=== PATIENT | female | born 1995 ===

== ENCOUNTER 2024-05-23 20:14 | Inpatient (IN) ==
[2024-05-24] MEDS ORDERED: LIDOCAINE 1% LOCAL 20 ML VIAL INFIL PRN (00:39)
[2024-05-24] MEDS ORDERED: OXYTOCIN 30 UNITS/NSS 30 UNITS/500 ML BAG IV PRN (00:39)
--- NOTE | 2024-05-24 01:17 | Obstetrical Progress Note ---
Date of Service May 24, 2024 Assessment & Plan (1) , post-term: Plan: Pt is 28 yo at 40+ gestation Presents in labor FHR; CA1 Ctx 2-6mins VE: 3/50/-3 Vt on presentation plan Admit and anticipate delivery Admission and Anticipated Discharge Date Admission Date: May 24, 2024 Results & Data Vital Signs (Past 12 Hours) Vital Signs Temp Pulse Resp BP 05/23/24 22:34 83 134/81 05/23/24 20:46 85 135/88 05/23/24 20:40 37.5 C 85 18 135/88
[2024-05-24 01:24] LABS: Hematocrit (blood only) 38.3 % (37.0-47.0); Hemoglobin 13.2 g/dl (12.0-16.0); Mean Corpuscular Hemoglobin 30.9 pg (25.0-34.0); Mean Corpuscular Hgb Conc 34.5 g/dL (32.0-36.0); Mean Corpuscular Volume 89.7 fL (80.0-100.0); Mean Platelet Volume 12.9 fL (9.4-12.4); Platelet Count 175 K/uL (130-400); RDW Coefficient of Variation 13.2 % (11.5-14.5); RDW Standard Deviation 43.1 fL (36.4-46.3); Red Blood Count 4.27 M/uL (4.20-5.40); White Blood Count 14.23 K/ul (4.8-10.8)
[2024-05-24] MEDS ORDERED: PROMETHAZINE 6.25 MG/50.25 ML BAG IV PRN ×2 (04:35→18:10)
[2024-05-24] MEDS ORDERED: SODIUM CHLORIDE 0.9% PF INJ 10 ML VIAL EPI PRN (04:35)
[2024-05-24] MEDS ORDERED: NALOXONE HCL 1 MG in SODIUM CHLORIDE 0.9% 1,000 ML IV PRN ×2 (04:35→18:10)
[2024-05-24] MEDS ORDERED: NALBUPHINE HCL INJ 10 MG/ML AMP IV PRN ×2 (04:35→18:10)
[2024-05-24] MEDS ORDERED: BUPIVACAINE 0.25% PF 30 ML VIAL EPI PRN (04:35)
[2024-05-24] MEDS ORDERED: LIDOCAINE 2% MPF LOCAL 5 ML VIAL EPI PRN (04:35)
[2024-05-24] MEDS ORDERED: NALOXONE HCL 0.4 MG/1 ML VIAL/CARP IV PRN ×2 (04:35→18:10)
[2024-05-24] MEDS ORDERED: diphenhydrAMINE 50 MG/ML VIAL IV PRN ×2 (04:35→18:10)
[2024-05-24] MEDS ORDERED: ROPIVACAINE 0.5% PF 5 MG/ML 20 ML VIAL EPI PRN (04:35)
[2024-05-24] MEDS ORDERED: fentaNYL citrate PF 100 MCG/2 ML VIAL EPI PRN (04:35)
[2024-05-24] MEDS ORDERED: ePHEDrine sulfate 50 MG/ML AMP IV PRN ×2 (04:35→18:10)
--- NOTE | 2024-05-24 04:37 | Anesthesiology Consultation ---
Date of Service May 24, 2024 Assessment & Plan Chart Review Chart Review: Patient NOT seen in Pre Admission Testing and Acceptable Risk for Labor Epidural Consults Requested none ASA ASA2 Proposed Anesthesia Anesthesia Type: Labor Epidural Risk / Benefits Reviewed With: PT / POA / Parent / Guardian, Accepts Plan and Informed Consent Obtained History Height/Weight Height: 5 ft 4 in Weight: 92.533 kg Allergies Allergy/AdvReac Type Severity Reaction Status Date / Time No Known Allergies Allergy Unverified 05/23/24 20:34 Past Medical History Medical History (Updated 05/24/24 @ 01:14 by Fernando Spence MD) History of spontaneous (08/2022) Exercise / Class Metabolic Activity II 4-5 Yardwork/Stairs/Walk up hill Past Family History Family History (Updated 05/23/24 @ 20:34 by Sadie Avalos RN) Grandmother (Maternal) Stroke Hypertension Mother Hypertension Past Surgical History Surgical History (Updated 05/23/24 @ 20:31 by Sadie Avalos RN) History of wisdom tooth extraction (2014) History of dilatation and curettage (08/2022) Past Anesthesia History No Hx of Anesthesia Complications and No Family Hx of Anesthesia Complications History of PONV No Hx of PONV and No Hx of Motion Sickness Social History Smoking Status: Never smoker Hx Alcohol Use: No Hx Substance Use: No substance use type: does not use Physical Exam Vital Signs Last Vital Signs Temp 37.5 C 05/23/24 20:40 Pulse 83 05/23/24 22:34 Resp 18 05/23/24 20:40 BP 134/81 05/23/24 22:34 ENMT Mouth: no dentition abnormality Thyromental Distance: > or= 3.5 Finger Breadths Mallampati Class: II Neck normal visual inspection Respiratory normal respiratory effort Auscultation: lungs clear to auscultation bilaterally Cardiovascular Rate/Rhythm: regular rate and regular rhythm Psychiatric Orientation: alert Testing Laboratory Results 05/24/24 00:52
[2024-05-24] MEDS: fentANYL 2 MCG/ML BUPIVacaine 0.125%-NSS 100ML BAG ONE (04:50)
[2024-05-24] MEDS: LIDOCAINE 2%/EPINEPHRINE 1:200,000 20 ML PF ONE (04:53)
[2024-05-24] MEDS: fentaNYL citrate PF 100 MCG/2 ML VIAL ONE (04:53)
[2024-05-24] MEDS: BUPIVACAINE 0.25% PF 30 ML VIAL ONE (04:53)
[2024-05-24] MEDS: SODIUM CHLORIDE 0.9% PF INJ 10 ML VIAL ONE (04:53)
[2024-05-24] MEDS: LIDOCAINE 2%/EPINEPHRINE 1:200,000 20 ML PF EPI STA (04:56)
[2024-05-24] MEDS: BUPIVACAINE 0.25% PF 30 ML VIAL EPI STA (04:56)
[2024-05-24] MEDS: fentaNYL citrate PF 100 MCG/2 ML VIAL EPI STA (04:56)
[2024-05-24] MEDS: SODIUM CHLORIDE 0.9% PF INJ 10 ML VIAL EPI STA (04:56)
--- NOTE | 2024-05-24 05:36 | Obstetrical Progress Note ---
Date of Service May 24, 2024 Assessment & Plan (1) , post-term: Plan: Pt doing well FHR; CAT1 Ctx 2-4mins Epidural placed AROM with amniohook- clear fluid Pitocin orders placed: To be started if ctx space out EFW; 7-8lbs Admission and Anticipated Discharge Date Admission Date: May 24, 2024 Results & Data Vital Signs (Past 12 Hours) Vital Signs Temp Pulse Resp BP Pulse Ox 05/24/24 05:29 104 H 98 05/24/24 05:24 114 H 100 05/24/24 05:19 86 98 05/24/24 05:18 84 129/61 05/24/24 05:16 100 H 113/56 L 05/24/24 05:14 89 05/24/24 05:14 87 126/60 97 05/24/24 05:12 97 H 116/57 L 05/24/24 05:10 90 128/62 05/24/24 05:09 86 97 05/24/24 05:08 107 H 117/60 05/24/24 05:06 100 H 118/63 05/24/24 05:04 105 H 125/68 98 05/24/24 05:02 111 H 113/55 L 05/24/24 05:00 116 H 118/64 05/24/24 04:59 96 H 98 05/24/24 04:58 99 H 111/56 L 05/24/24 04:56 94 H 119/57 L 05/24/24 04:54 100 H 119/61 98 05/24/24 04:52 100 H 128/70 05/24/24 04:50 96 H 132/76 05/24/24 04:49 107 H 100 05/24/24 04:48 104 H 137/84 05/24/24 04:46 90 144/95 H 05/24/24 04:44 95 H 99 05/24/24 04:42 93 H 143/91 H 05/23/24 22:34 83 134/81 05/23/24 20:46 85 135/88 05/23/24 20:40 37.5 C 85 18 135/88
[2024-05-24] MEDS: OXYTOCIN 30 UNITS/NSS 30 UNITS/500 ML BAG IV PRN (06:30)
[2024-05-24] MEDS: LACTATED RINGER'S 1,000 ML IV SCH ×2 (07:00→15:45)
--- NOTE | 2024-05-24 08:09 | Obstetrical Progress Note ---
Date of Service May 24, 2024 Assessment & Plan (1) , post-term: Plan: Pt doing well AROM FHR; CAT1 Ctx 2-5min PIT; 4mu VE; 7/100/-2 continue with augmentation Admission and Anticipated Discharge Date Admission Date: May 24, 2024 Results & Data Vital Signs (Past 12 Hours) Vital Signs Temp Pulse Resp BP Pulse Ox 05/24/24 08:05 120 H 124/68 05/24/24 08:04 94 H 100 05/24/24 07:59 96 H 100 05/24/24 07:54 84 99 05/24/24 07:50 90 112/71 05/24/24 07:49 86 99 05/24/24 07:44 101 H 99 05/24/24 07:39 89 98 05/24/24 07:34 91 H 113/72 99 05/24/24 07:30 36.8 C 20 05/24/24 07:29 96 H 99 05/24/24 07:24 94 H 100 05/24/24 07:19 95 H 113/72 99 05/24/24 07:14 97 H 99 05/24/24 07:09 97 H 100 05/24/24 07:04 103 H 107/56 L 100 05/24/24 06:59 83 99 05/24/24 06:54 107 H 100 05/24/24 06:50 83 103/58 L 05/24/24 06:49 86 99 05/24/24 06:44 89 99 05/24/24 06:39 96 H 98 05/24/24 06:34 94 H 107/59 L 99 05/24/24 06:30 16 05/24/24 06:30 16 05/24/24 06:29 89 98 05/24/24 06:24 85 98 05/24/24 06:20 88 101/59 L 05/24/24 06:19 89 99 05/24/24 06:14 94 H 99 05/24/24 06:09 96 H 99 05/24/24 06:04 93 H 107/61 99 05/24/24 05:59 97 H 97 05/24/24 05:54 89 97 05/24/24 05:50 88 105/63 05/24/24 05:49 86 98 05/24/24 05:44 91 H 97 05/24/24 05:39 92 H 98 05/24/24 05:34 102 H 97/55 L 98 05/24/24 05:30 16 05/24/24 05:30 16 05/24/24 05:30 16 05/24/24 05:30 16 05/24/24 05:29 104 H 98 05/24/24 05:24 114 H 100 05/24/24 05:19 86 98 05/24/24 05:18 84 129/61 05/24/24 05:16 100 H 113/56 L 05/24/24 05:14 89 05/24/24 05:14 87 126/60 97 05/24/24 05:12 97 H 116/57 L 05/24/24 05:10 90 128/62 05/24/24 05:09 86 97 05/24/24 05:08 107 H 117/60 05/24/24 05:06 100 H 118/63 05/24/24 05:04 105 H 125/68 98 05/24/24 05:02 111 H 113/55 L 05/24/24 05:00 116 H 118/64 05/24/24 04:59 96 H 98 05/24/24 04:58 99 H 111/56 L 05/24/24 04:56 94 H 119/57 L 05/24/24 04:54 100 H 119/61 98 05/24/24 04:52 100 H 128/70 05/24/24 04:50 96 H 132/76 05/24/24 04:49 107 H 100 05/24/24 04:48 104 H 137/84 05/24/24 04:46 90 144/95 H 05/24/24 04:44 95 H 99 05/24/24 04:42 93 H 143/91 H 05/24/24 04:00 36.5 C 05/23/24 22:34 83 134/81 05/23/24 20:46 85 135/88 05/23/24 20:40 37.5 C 85 18 135/88
[2024-05-24] MEDS ORDERED: CALCIUM CARBONATE 500 MG CHEWABLE TAB PO PRN ×2 (08:39→17:19)
[2024-05-24] MEDS: ONDANSETRON INJ 2 MG/ML 2 ML VIAL IV PRN (09:27)
[2024-05-24] MEDS: fentANYL 2 MCG/ML BUPIVacaine 0.125%-NSS 100ML BAG EPI PRN (13:32)
[2024-05-24] MEDS ORDERED: LIDOCAINE 2%/EPINEPHRINE 1:200,000 20 ML PF ONE (15:41)
[2024-05-24] MEDS ORDERED: MoRPHine SULFATE PF 1 MG/ML 10 ML AMP/VIAL ONE (15:43)
--- NOTE | 2024-05-24 15:51 | History & Physical Report ---
Date of Service May 24, 2024 Assessment & Plan Admission and Anticipated Discharge Date Admission Date: May 24, 2024 History of Present Illness Chief Complaint: Intrauterine 40 weeks 2 days gestation. Arrest of labor. Primary Care Provider: Unknown Unknown Patient is a 28-year-old 2 para 0. She has had 1 spontaneous AB. Her general health is good. is well dated with a first trimester ultrasound. Due date is 05/22/2024. Patient had no problems. Patient was admitted in labor on 05/22/2024 to 3 to 4 cm dilated. Eventually she had epidural for pain control. She had artificial rupture of membranes. And she was started on IV Pitocin. She received max doses of IV Pitocin having good strong contractions every 2 minutes. Despite having a good labor pattern with frequent strong contractions she had arrest of labor after 3+ hours in the active phase the head could not come down into the mid pelvis. At the time of the there was a lot of molding. And the sutures were not palpable through vaginal exam. Station was -2. Allergies Allergy/AdvReac Type Severity Reaction Status Date / Time No Known Allergies Allergy Unverified 05/23/24 20:34 Home Medications Medication Instructions Recorded Confirmed Type famotidine 20 mg tablet (Pepcid) 10 mg PO DAILY 05/24/24 05/24/24 History Past Med/Surg History Problem List , post-term Medical History History of spontaneous (08/2022) Surgical History History of wisdom tooth extraction (2014) History of dilatation and curettage (08/2022) Family History (Updated 05/23/24 @ 20:34 by Sadie Avalos RN) Grandmother (Maternal) Stroke Hypertension Mother Hypertension Social History (Updated 05/23/24 @ 20:33 by Sadie Avalos RN) Smoking Status: Never smoker Hx Alcohol Use: No Hx Substance Use: No Preferred Language: Swiss Communication Ability: Effective Visual Impairment: No Limitations [employer] Required: No Beliefs That Will Affect Care: None marital status: marital status details: Luis F (32) [phone] Current Living Situation: Spouse current occupational status: unemployed Other Information That Helps Us Care for You: No Feels Safe at Home: Yes Safety Concerns: Feels Safe At This Time Diet: regular Assistive Devices: None Physical Exam Physical Exam: Patient was well-developed well-nourished 28-year-old white female. Alert oriented x 3 cooperative. And intermittent periods of distress due to labor. Heart had a regular rhythm S1 and S2 are normal. Lungs were clear to auscultation and percussion. Trachea was midline. There was no cervical ad enopathy. Abdomen revealed a gravid abdomen consistent with an intrauterine of 7 to 8 pounds. Pelvic exam revealed a vertex presentation. There was a large amount of molding. Cervix was fully dilated. Station was a -2. So the sutures were not palpable. There was no calf tenderness. No CVA tenderness. Results & Data Results & Data Vital Signs (Past 12 Hours) Vital Signs Temp Pulse Resp BP Pulse Ox 05/24/24 15:44 108 H 100 05/24/24 15:42 119 H 93 05/24/24 15:39 97 H 99 05/24/24 15:34 105 H 97 05/24/24 15:29 122 H 99 05/24/24 15:24 120 H 98 05/24/24 15:19 105 H 93 05/24/24 15:14 113 H 97 05/24/24 15:12 118 H 94 05/24/24 15:09 100 H 96 05/24/24 15:04 118 H 137/78 98 05/24/24 14:59 116 H 99 05/24/24 14:54 92 H 96 05/24/24 14:53 91 H 141/87 H 05/24/24 14:49 127 H 98 05/24/24 14:45 20 05/24/24 14:45 20 05/24/24 14:44 108 H 98 05/24/24 14:39 92 H 96 05/24/24 14:35 98 H 92 05/24/24 14:34 130 H 99 05/24/24 14:29 93 05/24/24 14:29 102 H 05/24/24 14:29 127 H 99 05/24/24 14:24 100 H 97 05/24/24 14:19 117 H 97 05/24/24 14:15 99 H 22 146/97 H 05/24/24 14:14 118 H 98 05/24/24 14:10 103 H 137/98 05/24/24 14:09 133 H 97 05/24/24 14:08 118 H 131/101 H 05/24/24 14:07 128 H 94 05/24/24 14:04 109 H 136/89 98 05/24/24 14:00 22 05/24/24 14:00 22 05/24/24 13:59 115 H 99 05/24/24 13:54 105 H 97 05/24/24 13:50 101 H 140/95 05/24/24 13:49 106 H 98 05/24/24 13:45 22 05/24/24 13:45 22 05/24/24 13:44 100 H 98 05/24/24 13:39 111 H 98 05/24/24 13:34 99 H 96 05/24/24 13:29 107 H 98 05/24/24 13:24 113 H 97 05/24/24 13:19 99 H 05/24/24 13:19 106 H 120/65 96 05/24/24 13:14 114 H 98 05/24/24 13:09 118 H 98 05/24/24 13:06 110 H 149/74 H 05/24/24 13:04 110 H 05/24/24 13:04 147 H 155/78 H 97 05/24/24 13:00 22 05/24/24 13:00 36.8 C 22 05/24/24 12:59 149 H 98 05/24/24 12:54 124 H 98 05/24/24 12:51 115 H 138/79 05/24/24 12:49 123 H 98 05/24/24 12:45 22 05/24/24 12:45 22 05/24/24 12:44 147 H 98 05/24/24 12:39 142 H 98 05/24/24 12:34 109 H 139/80 100 05/24/24 12:30 20 05/24/24 12:30 20 05/24/24 12:29 98 H 98 05/24/24 12:24 95 H 100 05/24/24 12:20 100 H 141/78 H 05/24/24 12:19 95 H 100 05/24/24 12:14 114 H 99 05/24/24 12:09 96 H 98 05/24/24 12:04 95 H 130/65 99 05/24/24 12:00 20 05/24/24 12:00 20 05/24/24 11:59 94 H 98 05/24/24 11:54 89 97 05/24/24 11:50 95 H 138/65 05/24/24 11:49 111 H 99 05/24/24 11:44 100 H 99 05/24/24 11:39 92 H 05/24/24 11:39 104 H 148/85 H 100 05/24/24 11:35 37.1 C 05/24/24 11:34 115 H 100 05/24/24 11:30 18 05/24/24 11:30 18 05/24/24 11:29 104 H 99 05/24/24 11:24 98 H 98 05/24/24 11:20 100 H 144/88 H 05/24/24 11:19 101 H 99 05/24/24 11:14 94 H 99 05/24/24 11:09 90 99 05/24/24 11:05 91 H 134/87 05/24/24 11:04 101 H 99 05/24/24 11:00 18 05/24/24 11:00 18 05/24/24 10:59 106 H 99 05/24/24 10:54 97 H 98 05/24/24 10:50 103 H 141/90 H 05/24/24 10:49 106 H 99 05/24/24 10:44 101 H 98 05/24/24 10:39 112 H 99 05/24/24 10:34 99 05/24/24 10:34 105 H 05/24/24 10:34 102 H 113/65 05/24/24 10:29 104 H 97 05/24/24 10:24 81 97 05/24/24 10:19 88 05/24/24 10:19 83 110/64 97 05/24/24 10:14 84 97 05/24/24 10:09 88 96 05/24/24 10:05 87 110/63 05/24/24 10:04 86 98 05/24/24 10:00 18 05/24/24 10:00 18 05/24/24 09:59 85 97 05/24/24 09:54 84 97 05/24/24 09:49 98 H 114/63 98 05/24/24 09:44 82 97 05/24/24 09:39 97 H 96 05/24/24 09:34 92 H 119/60 98 05/24/24 09:30 18 05/24/24 09:30 36.8 C 18 05/24/24 09:29 99 H 99 05/24/24 09:24 111 H 99 05/24/24 09:20 90 130/79 05/24/24 09:19 96 H 98 05/24/24 09:14 104 H 98 05/24/24 09:09 118 H 98 05/24/24 09:05 95 H 133/84 05/24/24 09:04 94 H 99 05/24/24 08:59 101 H 99 05/24/24 08:54 96 H 99 05/24/24 08:49 101 H 130/89 98 05/24/24 08:44 111 H 99 05/24/24 08:39 112 H 98 05/24/24 08:34 134 H 100 05/24/24 08:30 18 05/24/24 08:30 18 05/24/24 08:29 91 H 98 05/24/24 08:24 102 H 99 05/24/24 08:20 96 H 133/85 05/24/24 08:19 115 H 100 05/24/24 08:14 109 H 100 05/24/24 08:09 95 H 98 05/24/24 08:05 120 H 124/68 05/24/24 08:04 94 H 100 05/24/24 08:00 18 05/24/24 08:00 18 05/24/24 07:59 96 H 100 05/24/24 07:54 84 99 05/24/24 07:50 90 112/71 05/24/24 07:49 86 99 05/24/24 07:44 101 H 99 05/24/24 07:39 89 98 05/24/24 07:34 91 H 113/72 99 05/24/24 07:30 36.8 C 20 05/24/24 07:30 18 05/24/24 07:30 18 05/24/24 07:29 96 H 99 05/24/24 07:24 94 H 100 05/24/24 07:19 95 H 113/72 99 05/24/24 07:14 97 H 99 05/24/24 07:09 97 H 100 05/24/24 07:04 103 H 107/56 L 100 05/24/24 06:59 83 99 05/24/24 06:54 107 H 100 05/24/24 06:50 83 103/58 L 05/24/24 06:49 86 99 05/24/24 06:44 89 99 05/24/24 06:39 96 H 98 05/24/24 06:34 94 H 107/59 L 99 05/24/24 06:30 16 05/24/24 06:30 16 05/24/24 06:29 89 98 05/24/24 06:24 85 98 05/24/24 06:20 88 101/59 L 05/24/24 06:19 89 99 05/24/24 06:14 94 H 99 05/24/24 06:09 96 H 99 05/24/24 06:04 93 H 107/61 99 05/24/24 05:59 97 H 97 05/24/24 05:54 89 97 05/24/24 05:50 88 105/63 05/24/24 05:49 86 98 05/24/24 05:44 91 H 97 05/24/24 05:39 92 H 98 05/24/24 05:34 102 H 97/55 L 98 05/24/24 05:30 16 05/24/24 05:30 16 05/24/24 05:30 16 05/24/24 05:30 16 05/24/24 05:29 104 H 98 05/24/24 05:24 114 H 100 05/24/24 05:19 86 98 05/24/24 05:18 84 129/61 05/24/24 05:16 100 H 113/56 L 05/24/24 05:14 89 05/24/24 05:14 87 126/60 97 05/24/24 05:12 97 H 116/57 L 05/24/24 05:10 90 128/62 05/24/24 05:09 86 97 05/24/24 05:08 107 H 117/60 05/24/24 05:06 100 H 118/63 05/24/24 05:04 105 H 125/68 98 05/24/24 05:02 111 H 113/55 L 05/24/24 05:00 116 H 118/64 05/24/24 04:59 96 H 98 05/24/24 04:58 99 H 111/56 L 05/24/24 04:56 94 H 119/57 L 05/24/24 04:54 100 H 119/61 98 05/24/24 04:52 100 H 128/70 05/24/24 04:50 96 H 132/76 05/24/24 04:49 107 H 100 05/24/24 04:48 104 H 137/84 05/24/24 04:46 90 144/95 H 05/24/24 04:44 95 H 99 05/24/24 04:42 93 H 143/91 H 05/24/24 04:00 36.5 C Code Status & VTE Plan VTE Prophylaxis Plan VTE Prophylaxis will be ordered: Yes
[2024-05-24] MEDS: CITRIC ACID/SODIUM CITRATE 15 ML UDC PO SCH (15:56)
[2024-05-24] MEDS: ACETAMINOPHEN 500 MG TAB PO SCH (15:56)
[2024-05-24] MEDS: cefOXitin 2,000 MG in DEXTROSE 5 % MINI-B 50 ML IV SCH (16:03)
[2024-05-24] MEDS ORDERED: OXYTOCIN 10 UNITS/ML VIAL ONE (16:28)
[2024-05-24] MEDS: OXYTOCIN 10 UNITS/ML 10ML VIAL IM ONE (16:34)
[2024-05-24] MEDS ORDERED: LACTATED RINGER'S 1,000 ML IV SCH ×2 (16:45→17:30)
[2024-05-24] MEDS ORDERED: MAGNESIUM HYDROXIDE SUSP 30 ML UDC PO PRN (17:19)
[2024-05-24] MEDS ORDERED: BENZOCAINE 20% SPRY 85 APPLN/85 GM CAN EXT PRN (17:19)
[2024-05-24] MEDS ORDERED: SENNA 8.6 MG TAB PO PRN (17:19)
[2024-05-24] MEDS ORDERED: ONDANSETRON INJ 2 MG/ML 2 ML VIAL IV PRN ×2 (17:19→18:10)
[2024-05-24] MEDS ORDERED: HYDROCORTISONE ACETATE 25 MG SUPP PR PRN (17:19)
[2024-05-24] MEDS ORDERED: OXYTOCIN 30 UNITS/LR 1,003 ML IV SCH (17:30)
--- NOTE | 2024-05-24 17:30 | Operative Report ---
Post Operative Report Pre & Post Diagnosis Operation Date: 05/24/24 16:15 Pre-Op Diagnosis: Cephalopelvic Disproportion Post-Op Diagnosis: Cephalopelvic Disproportion I identified the patient and participated in the time-out.: Yes Procedure Operation Date: 05/24/24 16:15 Actual Procedures p Section in LD delivery of live male child at 1632(Bilateral) - Conor Velez MD Surgeon Conor Velez MD Marketing Development Manager Nurse to assist Estimated Blood Loss 680 Findings Consistent with Post-Op Diagnosis Direct occiput posterior position Specimens Placenta Anesthesia Type MAC Epidural Complications None Indications Arrest of labor secondary to cephalopelvic disproportion. Description of Procedure Patient was brought to the OR table correctly identified by armband and conversation. Epidural anesthesia was topped off. Compression stockings and a Hernandez catheter was inserted. Lower abdomen was painted with an alcohol-based sterilizing solution. This was allowed to dry for 3 minutes. Was then draped in usual sterile fashion. Timeout was called. Level of anesthesia was checked and found to be adequate. A Pfannenstiel incision was made and carried down to the anterior fascia by sharp dissection. Fascia was incised transversely exposing the recti muscles. Fascial layer was dissected off the recti muscles in the midline. Down to the pelvic brim. And up towards the umbilicus. Peritoneum was raised and entered in the midline. A retractor was inserted into the incision for exposure of the lower uterine segment. An incision was made above the vesicouterine fold. The bladder was advanced out of the incisional area. Incision and uterus was made by cutting first with a knife and then entering bluntly with the scissors. Clear amniotic fluid was seen at this time. The operators hand was started into the pelvic cavity. At this time it was noted that the was direct OP. I was able to get my hand around the caput. And then as I pulled upward the head rotated into OA position. And then with fundal pressure we pushed the out of the incision. breathing cried spontaneously was attended to by the oil dispatcher who is scrubbed and present at the time of delivery. Cord was allowed to pulse for 1 minute. Cord was then clamped and cut. was delivered to the oil dispatcher. Cord blood was taken. The placenta was removed manually. Uterus tubes and ovaries were brought out through the abdominal incision. A clean sponge was used to clean the uterine cavity. 10 units of Pitocin was injected into the myometrium. The lower segmental defect was exposed. Ring forceps were used to tag the angle. And a heavy-duty chromic was used to approximate the myometrial layer. Following this a Vicryl suture was used to approximate the fascial layer over this by placing the Vicryl in a horizontal suture. 3 [id number] sutures of Vicryl were used to create hemostasis and to better approximate the fascial layer. Following this a plain suture was used approximate the perineal skin edges. And restore the integrity of the vesicouterine fold. At this time the incision was inspected and found to be hemostatic. Pelvis was cleansed of all blood clots and debris. The uterus tubes and ovaries were reinserted into the abdominal cavity. A careful anatomical approximation of the anterior abdominal wall was performed. The peritoneum was closed with a continuous interlocking suture of chromic. Recti muscles were approximated with interrupted [id number] suture of chromic. Fascial layer was closed with a continuous interlocking suture of Vicryl and tied in the midline. Subcu was approximated with a running plain. The skin edges were approximated with staple clips. Patient tolerated procedure well. I attest to the content of the Intraoperative Record and any orders documented therein. Any exceptions are noted below.
[2024-05-24] MEDS: ePHEDrine sulfate 50 MG/ML AMP ONE (17:39)
[2024-05-24] MEDS: OXYTOCIN 20 UNITS/LR 1,002 ML IV SCH (18:00)
[2024-05-24] MEDS: DIPHTHER/TETAN/PERTUS Vaccine (Tdap, Adol/Adult) 0.5mL IM ONE (18:03)
[2024-05-24] MEDS: KETOROLAC 30 MG/ML VIAL ONE (18:06)
[2024-05-24] MEDS ORDERED: HYDROmorphone INJ 0.5 MG/0.5 ML SYR IV PRN (18:10)
[2024-05-24] MEDS ORDERED: METOCLOPRAMIDE HCL 10 MG in SODIUM CHLORIDE 0.9% 50 ML IV PRN (18:10)
[2024-05-24] MEDS ORDERED: MEPERIDINE HCL 25 MG/ML CARP/VIAL IV PRN (18:10)
[2024-05-24] MEDS ORDERED: oxyCODONE HCL IR 5 MG TAB (IMMEDIATE RELEASE) PO PRN (18:10)
[2024-05-24] MEDS ORDERED: MoRPHine SULFATE 2 MG/ML CARP IV PRN (18:10)
[2024-05-24] MEDS ORDERED: ACETAMINOPHEN 1,000 MG/100 ML VIAL IV PRN (18:12)
[2024-05-24] MEDS ORDERED: KETOROLAC 30 MG/ML VIAL IV PRN (18:12)
[2024-05-24] MEDS: KETOROLAC 30 MG/ML VIAL IV SCH (18:14)
[2024-05-24] MEDS ORDERED: DC INTRASPINAL MORPHINE SCH (18:15)
[2024-05-24] MEDS ORDERED: NO NARCOTICS OR SEDATIVES SCH (18:15)
--- NOTE | 2024-05-24 18:38 | Anesthesiology Progress Note ---
Date of Service May 24, 2024 Anesthesia Post Procedure Vital Signs Vital Signs: Temp Pulse Resp BP Pulse Ox 05/24/24 18:34 92 H 140/78 95 05/24/24 18:29 93 H 98 05/24/24 18:24 97 05/24/24 18:24 92 H 05/24/24 18:24 90 134/82 05/24/24 18:19 92 H 98 05/24/24 18:14 91 H 136/84 97 05/24/24 18:09 92 H 98 05/24/24 18:04 91 H 134/80 99 05/24/24 17:59 94 H 99 05/24/24 17:54 99 H 129/82 99 05/24/24 17:49 96 H 100 05/24/24 17:45 79 135/81 05/24/24 17:44 80 98 05/24/24 17:39 79 99 05/24/24 17:34 18 05/24/24 17:34 89 124/70 100 05/24/24 17:29 90 100 05/24/24 17:24 36.7 C 20 05/24/24 17:24 84 126/76 100 05/24/24 16:05 18 05/24/24 16:05 18 05/24/24 16:04 99 H 100 05/24/24 16:03 115 H 143/84 H 05/24/24 16:00 108 H 138/86 05/24/24 15:59 108 H 100 05/24/24 15:58 108 H 139/87 05/24/24 15:54 111 H 100 05/24/24 15:51 98 H 131/94 05/24/24 15:49 106 H 99 05/24/24 15:48 99 H 140/97 05/24/24 15:44 108 H 100 05/24/24 15:42 119 H 93 05/24/24 15:39 97 H 99 05/24/24 15:34 105 H 97 05/24/24 15:30 18 05/24/24 15:30 18 05/24/24 15:29 122 H 99 05/24/24 15:24 120 H 98 05/24/24 15:19 105 H 93 05/24/24 15:15 18 05/24/24 15:15 18 05/24/24 15:14 113 H 97 05/24/24 15:12 118 H 94 05/24/24 15:09 100 H 96 05/24/24 15:04 118 H 137/78 98 05/24/24 15:00 18 05/24/24 15:00 18 05/24/24 14:59 116 H 99 05/24/24 14:54 92 H 96 05/24/24 14:53 91 H 141/87 H 05/24/24 14:49 127 H 98 05/24/24 14:45 20 05/24/24 14:45 20 05/24/24 14:44 108 H 98 05/24/24 14:39 92 H 96 05/24/24 14:35 98 H 92 05/24/24 14:34 130 H 99 05/24/24 14:29 93 05/24/24 14:29 102 H 05/24/24 14:29 127 H 99 05/24/24 14:24 100 H 97 05/24/24 14:19 117 H 97 05/24/24 14:15 99 H 22 146/97 H 05/24/24 14:14 118 H 98 05/24/24 14:10 103 H 137/98 05/24/24 14:09 133 H 97 05/24/24 14:08 118 H 131/101 H 05/24/24 14:07 128 H 94 05/24/24 14:04 109 H 136/89 98 05/24/24 14:00 22 05/24/24 14:00 22 05/24/24 13:59 115 H 99 05/24/24 13:54 105 H 97 05/24/24 13:50 101 H 140/95 05/24/24 13:49 106 H 98 05/24/24 13:45 22 05/24/24 13:45 22 05/24/24 13:44 100 H 98 05/24/24 13:39 111 H 98 05/24/24 13:34 99 H 96 05/24/24 13:29 107 H 98 05/24/24 13:24 113 H 97 05/24/24 13:19 99 H 05/24/24 13:19 106 H 120/65 96 05/24/24 13:14 114 H 98 05/24/24 13:09 118 H 98 05/24/24 13:06 110 H 149/74 H 05/24/24 13:04 110 H 05/24/24 13:04 147 H 155/78 H 97 05/24/24 13:00 22 05/24/24 13:00 36.8 C 22 05/24/24 12:59 149 H 98 05/24/24 12:54 124 H 98 05/24/24 12:51 115 H 138/79 05/24/24 12:49 123 H 98 05/24/24 12:45 22 05/24/24 12:45 22 05/24/24 12:44 147 H 98 05/24/24 12:39 142 H 98 05/24/24 12:34 109 H 139/80 100 05/24/24 12:30 20 05/24/24 12:30 20 05/24/24 12:29 98 H 98 05/24/24 12:24 95 H 100 05/24/24 12:20 100 H 141/78 H 05/24/24 12:19 95 H 100 05/24/24 12:14 114 H 99 05/24/24 12:09 96 H 98 05/24/24 12:04 95 H 130/65 99 05/24/24 12:00 20 05/24/24 12:00 20 05/24/24 11:59 94 H 98 05/24/24 11:54 89 97 05/24/24 11:50 95 H 138/65 05/24/24 11:49 111 H 99 05/24/24 11:44 100 H 99 05/24/24 11:39 92 H 05/24/24 11:39 104 H 148/85 H 100 05/24/24 11:35 37.1 C 05/24/24 11:34 115 H 100 05/24/24 11:30 18 05/24/24 11:30 18 05/24/24 11:29 104 H 99 05/24/24 11:24 98 H 98 05/24/24 11:20 100 H 144/88 H 05/24/24 11:19 101 H 99 05/24/24 11:14 94 H 99 05/24/24 11:09 90 99 05/24/24 11:05 91 H 134/87 05/24/24 11:04 101 H 99 05/24/24 11:00 18 05/24/24 11:00 18 05/24/24 10:59 106 H 99 05/24/24 10:54 97 H 98 05/24/24 10:50 103 H 141/90 H 05/24/24 10:49 106 H 99 05/24/24 10:44 101 H 98 05/24/24 10:39 112 H 99 05/24/24 10:34 99 05/24/24 10:34 105 H 05/24/24 10:34 102 H 113/65 05/24/24 10:29 104 H 97 05/24/24 10:24 81 97 05/24/24 10:19 88 05/24/24 10:19 83 110/64 97 05/24/24 10:14 84 97 05/24/24 10:09 88 96 05/24/24 10:05 87 110/63 05/24/24 10:04 86 98 05/24/24 10:00 18 05/24/24 10:00 18 05/24/24 09:59 85 97 05/24/24 09:54 84 97 05/24/24 09:49 98 H 114/63 98 05/24/24 09:44 82 97 05/24/24 09:39 97 H 96 05/24/24 09:34 92 H 119/60 98 05/24/24 09:30 18 05/24/24 09:30 36.8 C 18 05/24/24 09:29 99 H 99 05/24/24 09:24 111 H 99 05/24/24 09:20 90 130/79 05/24/24 09:19 96 H 98 05/24/24 09:14 104 H 98 05/24/24 09:09 118 H 98 05/24/24 09:05 95 H 133/84 05/24/24 09:04 94 H 99 05/24/24 08:59 101 H 99 05/24/24 08:54 96 H 99 05/24/24 08:49 101 H 130/89 98 05/24/24 08:44 111 H 99 05/24/24 08:39 112 H 98 05/24/24 08:34 134 H 100 05/24/24 08:30 18 05/24/24 08:30 18 05/24/24 08:29 91 H 98 05/24/24 08:24 102 H 99 05/24/24 08:20 96 H 133/85 05/24/24 08:19 115 H 100 05/24/24 08:14 109 H 100 05/24/24 08:09 95 H 98 05/24/24 08:05 120 H 124/68 05/24/24 08:04 94 H 100 05/24/24 08:00 18 05/24/24 08:00 18 05/24/24 07:59 96 H 100 05/24/24 07:54 84 99 05/24/24 07:50 90 112/71 05/24/24 07:49 86 99 05/24/24 07:44 101 H 99 05/24/24 07:39 89 98 05/24/24 07:34 91 H 113/72 99 05/24/24 07:30 36.8 C 20 05/24/24 07:30 18 05/24/24 07:30 18 05/24/24 07:29 96 H 99 05/24/24 07:24 94 H 100 05/24/24 07:19 95 H 113/72 99 05/24/24 07:14 97 H 99 05/24/24 07:09 97 H 100 05/24/24 07:04 103 H 107/56 L 100 05/24/24 06:59 83 99 05/24/24 06:54 107 H 100 05/24/24 06:50 83 103/58 L 05/24/24 06:49 86 99 05/24/24 06:44 89 99 05/24/24 06:39 96 H 98 05/24/24 06:34 94 H 107/59 L 99 05/24/24 06:30 16 05/24/24 06:30 16 05/24/24 06:29 89 98 05/24/24 06:24 85 98 05/24/24 06:20 88 101/59 L 05/24/24 06:19 89 99 05/24/24 06:14 94 H 99 05/24/24 06:09 96 H 99 05/24/24 06:04 93 H 107/61 99 05/24/24 05:59 97 H 97 05/24/24 05:54 89 97 05/24/24 05:50 88 105/63 05/24/24 05:49 86 98 05/24/24 05:44 91 H 97 05/24/24 05:39 92 H 98 05/24/24 05:34 102 H 97/55 L 98 05/24/24 05:30 16 05/24/24 05:30 16 05/24/24 05:30 16 05/24/24 05:30 16 05/24/24 05:29 104 H 98 05/24/24 05:24 114 H 100 05/24/24 05:19 86 98 05/24/24 05:18 84 129/61 05/24/24 05:16 100 H 113/56 L 05/24/24 05:14 89 05/24/24 05:14 87 126/60 97 05/24/24 05:12 97 H 116/57 L 05/24/24 05:10 90 128/62 05/24/24 05:09 86 97 05/24/24 05:08 107 H 117/60 05/24/24 05:06 100 H 118/63 05/24/24 05:04 105 H 125/68 98 05/24/24 05:02 111 H 113/55 L 05/24/24 05:00 116 H 118/64 05/24/24 04:59 96 H 98 05/24/24 04:58 99 H 111/56 L 05/24/24 04:56 94 H 119/57 L 05/24/24 04:54 100 H 119/61 98 05/24/24 04:52 100 H 128/70 05/24/24 04:50 96 H 132/76 05/24/24 04:49 107 H 100 05/24/24 04:48 104 H 137/84 05/24/24 04:46 90 144/95 H 05/24/24 04:44 95 H 99 05/24/24 04:42 93 H 143/91 H 05/24/24 04:00 36.5 C 05/23/24 22:34 83 134/81 05/23/24 20:46 85 135/88 05/23/24 20:40 37.5 C 85 18 135/88 Transfer of Care Handoff Completed per policy Notes Mental Status: alert / awake / arousable and participated in evaluation Nausea / Vomiting: adequately controlled Pain: adequately controlled Airway Patency, RR, SpO2: stable & adequate BP & HR: stable & adequate Hydration State: stable & adequate Neuraxial Anesthesia: was administered and sensory block is resolving Anesthetic Complications: no major complications apparent and Pt Satisfied with anesthetic care
--- NOTE | 2024-05-24 18:39 | Anesthesia Procedure Note ---
Date of Service May 24, 2024 Anesthesia Post Epidural Note Vital Signs Vital Signs: Temp Pulse Resp BP Pulse Ox 36.7 C 92 H 16 140/78 95 05/24/24 17:24 05/24/24 18:34 05/24/24 17:44 05/24/24 18:34 05/24/24 18:34 Notes Mental Status: alert / awake / arousable Nausea / Vomiting: adequately controlled Pain: adequately controlled Airway Patency, RR, SpO2: stable & adequate BP & HR: stable & adequate Hydration State: stable & adequate Neuraxial Anesthesia: was administered and sensory block is resolving Anesthetic Complications: no major complications apparent and Pt Satisfied with anesthetic care Epidural: Removed without complications and With tip intact
[2024-05-24] MEDS: ACETAMINOPHEN 325 MG TAB PO SCH (23:45)
[2024-05-25] MEDS: SIMETHICONE 80 MG CHEW PO SCH (01:29)
[2024-05-25] MEDS: DOCUSATE SODIUM 100 MG CAP PO SCH (01:29)
[2024-05-25 06:21] LABS: Basophils # (auto) 0.04 K/uL (0.00-0.20); Basophils % (auto) 0.3 %; Eosinophils # (auto) 0.02 K/uL (0.00-0.50); Eosinophils % (auto) 0.2 %; Hematocrit (blood only) 32.2 % (37.0-47.0); Immature Granulocytes # (auto) 0.06 K/uL (0.01-0.20); Immature Granulocytes % (auto) 0.5 %; Lymphocytes # (auto) 1.53 K/uL (1.20-3.40); Lymphocytes % (auto) 12.5 %; Mean Corpuscular Hgb Conc 34.2 g/dL (32.0-36.0); Mean Corpuscular Volume 90.7 fL (80.0-100.0); Mean Platelet Volume 12.8 fL (9.4-12.4); Monocytes # (auto) 0.69 K/uL (0.11-0.59); Monocytes % (auto) 5.6 %; Neutrophils # (auto) 9.93 K/uL (1.40-6.50); Neutrophils % (auto) 80.9 %; Platelet Count 132 K/uL (130-400); RDW Coefficient of Variation 13.2 % (11.5-14.5); RDW Standard Deviation 44.3 fL (36.4-46.3); Red Blood Count 3.55 M/uL (4.20-5.40); White Blood Count 12.27 K/ul (4.8-10.8)
[2024-05-25 08:36] VITALS: O2SAT 97
--- NOTE | 2024-05-25 08:46 | Obstetrical Progress Note ---
Date of Service May 25, 2024 Assessment & Plan Admission and Anticipated Discharge Date Admission Date: May 24, 2024 Subjective Patient is seen and examined. She feels well, no complaints. Pain is under control with oral meds. Ambulating without dizziness Voiding without difficulty Tolerating regular diet with out N&V Flatus + Bleeding is minimal No fever/ chills/ CP/ SOB/ N&V/ Leg pain Breast feeding without problems Vital Signs Temp Pulse Resp BP Pulse Ox O2 Del Method 05/25/24 07:50 18 97 05/25/24 07:50 36.5 C 88 16 117/73 97 Room Air 05/25/24 05:31 18 96 05/25/24 04:00 16 98 05/25/24 04:00 16 97 05/25/24 03:00 14 95 05/25/24 03:00 36.7 C 90 14 147/94 H 95 Room Air 05/25/24 02:15 16 96 05/25/24 01:29 16 95 05/25/24 00:20 18 97 05/24/24 23:30 36.7 C 79 16 128/80 95 Room Air 05/24/24 23:17 16 95 05/24/24 22:00 14 96 05/24/24 21:30 16 97 Lab Results 05/24/24 05/25/24 Range/Units 00:52 05:47 WBC 14.23 H 12.27 H (4.8-10.8) K/ul RBC 4.27 3.55 L (4.20-5.40) M/uL Hgb 13.2 11.0 L (12.0-16.0) g/dl Hct 38.3 32.2 L (37.0-47.0) % MCV 89.7 90.7 (80.0-100.0) fL MCH 30.9 31.0 (25.0-34.0) pg MCHC 34.5 34.2 (32.0-36.0) g/dL RDW Std Deviation 43.1 44.3 (36.4-46.3) fL RDW Coeff of Quintin 13.2 13.2 (11.5-14.5) % Plt Count 175 132 (130-400) K/uL MPV 12.9 H 12.8 H (9.4-12.4) fL Immature Gran % (Auto) 0.5 % Neut % (Auto) 80.9 % Lymph % (Auto) 12.5 % [place] % (Auto) 5.6 % Eos % (Auto) 0.2 % Baso % (Auto) 0.3 % Neut # (Auto) 9.93 H (1.40-6.50) K/uL Lymph # (Auto) 1.53 (1.20-3.40) K/uL [place] # (Auto) 0.69 H (0.11-0.59) K/uL Eos # (Auto) 0.02 (0.00-0.50) K/uL Baso # (Auto) 0.04 (0.00-0.20) K/uL Immature Gran # (Auto) 0.06 (0.01-0.20) K/uL Treponema pallidum Ab Negative (Negative) Blood Type O Negative Antibody Screen POSITIVE A Cancelled Antibody Identification Anti-D due to RhIg Antibody ID Comment PE: General: Alert, orientedx3, NAD CVS: S1S2 RRR Lungs; CTAB Abd: soft, NT, ND, BS+, fundus firm, below Umbilicus Incision/ Dressing: Clean, dry, intact Perineum intact, Lochia rubra minimal Ext; NT, no edema AP: 28 yo s/p C Section, pod# 1 VSS Afebrile doing well Continue routine postop care Encourage ambulation, PO intake All questions were answered Results & Data Vital Signs (Past 12 Hours) Vital Signs Temp Pulse Resp BP Pulse Ox O2 Del Method 05/25/24 07:50 18 97 05/25/24 07:50 36.5 C 88 16 117/73 97 Room Air 05/25/24 05:31 18 96 05/25/24 04:00 16 98 05/25/24 04:00 16 97 05/25/24 03:00 14 95 05/25/24 03:00 36.7 C 90 14 147/94 H 95 Room Air 05/25/24 02:15 16 96 05/25/24 01:29 16 95 05/25/24 00:20 18 97 05/24/24 23:30 36.7 C 79 16 128/80 95 Room Air 05/24/24 23:17 16 95 05/24/24 22:00 14 96 05/24/24 21:30 16 97
[2024-05-25] MEDS: FERROUS SULFATE 325 MG TAB PO SCH (08:52)
[2024-05-25] MEDS: NALOXONE HCL 0.08 MG in SYRINGE 1.8 ML IV PRN (08:52)
[2024-05-25] MEDS: PRENATAL VITAMIN 1 TAB PO SCH (08:52)
[2024-05-25 10:26] LABS: Albumin Globulin Ratio 1.2 (0.9-2); Albumin Level 3.2 gm/dl (3.4-5.0); BUN Creatinine Ratio 13.5 (10-20); Bilirubin,Total 0.5 mg/dl (0.2-1.0); Calcium 8.7 mg/dl (8.6-10.3); Creatinine Clr Calc Pharmacy 105.6 ml/min; Globulin 2.6 gm/dl (2.5-4.0); Potassium 4.1 mmol/L (3.5-5.1); Total Protein 5.8 gm/dl (6.0-8.3)
[2024-05-25] MEDS ORDERED: diphenhydrAMINE Capsule 25 MG CAP PO PRN (12:10)
[2024-05-25] MEDS ORDERED: PROMETHAZINE 12.5 MG/50.5 ML BAG IV PRN (12:10)
[2024-05-25] MEDS ORDERED: HYDROmorphone INJ 0.5 MG/0.5 ML SYR IV PRN (12:10)
[2024-05-25] MEDS ORDERED: ZOLPIDEM TARTRATE 5 MG TAB PO PRN (12:10)
[2024-05-25] MEDS ORDERED: traMADol HCL 50 MG TABLET PO SCH (12:10)
[2024-05-25] MEDS ORDERED: diphenhydrAMINE 50 MG/ML VIAL IV PRN (12:10)
[2024-05-25] MEDS: FAMOTIDINE 10 MG TABLET PO ONE (13:27)
[2024-05-25] MEDS ORDERED: KETOROLAC 30 MG/ML VIAL IV PRN (17:19)
[2024-05-25] MEDS: IBUPROFEN 600 MG TAB PO SCH (18:13)
[2024-05-25] MEDS: bisacodyL 5 MG TABEC PO SCH (20:23)
[2024-05-26 00:11] VITALS: TEMP 97.5
[2024-05-26] MEDS: oxyCODONE HCL IR 5 MG TAB (IMMEDIATE RELEASE) PO PRN (06:24)
[2024-05-26] MEDS: MoRPHine SULFATE PF 1 MG/ML 10 ML AMP/VIAL INT SPINAL ONE (07:15)
[2024-05-26 07:45] VITALS: BP 129/83; PULSE 86; RESP 20
[2024-05-26 08:10] LABS: Hematocrit (blood only) 31.8 % (37.0-47.0); Hemoglobin 10.6 g/dl (12.0-16.0)
--- NOTE | 2024-05-26 11:49 | Obstetrical Progress Note ---
Date of Service May 26, 2024 Subjective Ambulation: ambulating normally Voiding: no voiding problems Passing Gas:: Yes Diet Tolerance:: regular diet Lochia:: Small Feeding Type:: breast feeding Current Pain Level(1-10): 0 doing well. plans for d/c today. Physical Exam Constitutional WD/WN, vitals as above Gastrointestinal (Abdomen) Inspection/Auscultation: abdomen normal to inspection incision c/d/i abdomen soft and non-tender Musculoskeletal Extremities: extremities normal to inspection Skin no rashes, warm and dry Neurologic patellar DTR's 2+ bilat, sensation intact Psychiatric A+Ox3, euthymic affect Results & Data Vital Signs (Past 12 Hours) Vital Signs Temp Pulse Resp BP Pulse Ox O2 Del Method 05/26/24 07:39 36.4 C L 86 20 129/83 97 Room Air Laboratory Results 05/24/24 05/25/24 05/25/24 00:52 05:47 08:46 WBC 14.23 H 12.27 H RBC 4.27 3.55 L Hgb 13.2 11.0 L Hct 38.3 32.2 L MCV 89.7 90.7 MCH 30.9 31.0 MCHC 34.5 34.2 RDW Std Deviation 43.1 44.3 RDW Coeff of Quintin 13.2 13.2 Plt Count 175 132 MPV 12.9 H 12.8 H Immature Gran % (Auto) 0.5 Neut % (Auto) 80.9 Lymph % (Auto) 12.5 Person % (Auto) 5.6 Eos % (Auto) 0.2 Baso % (Auto) 0.3 Neut # (Auto) 9.93 H Lymph # (Auto) 1.53 Person # (Auto) 0.69 H Eos # (Auto) 0.02 Baso # (Auto) 0.04 Immature Gran # (Auto) 0.06 Sodium 133 L Potassium 4.1 Chloride 102 Carbon Dioxide 24 Anion Gap 7 BUN 12 Creatinine 0.89 Est Cr Clr Drug Dosing 105.6 eGFR 91.64 BUN/Creatinine Ratio 13.5 Glucose 65 L Calcium 8.7 Total Bilirubin 0.5 AST 31 ALT 12 Alkaline Phosphatase 119 H Total Protein 5.8 L Albumin 3.2 L Globulin 2.6 Albumin/Globulin Ratio 1.2 Treponema pallidum Ab Negative Blood Type O Negative O Negative Antibody Screen POSITIVE A Cancelled Antibody Identification Anti-D due to RhIg Antibody ID Comment Screen Negative 05/26/24 07:52 WBC RBC Hgb 10.6 L Hct 31.8 L MCV MCH MCHC RDW Std Deviation RDW Coeff of Quintin Plt Count MPV Immature Gran % (Auto) Neut % (Auto) Lymph % (Auto) Person % (Auto) Eos % (Auto) Baso % (Auto) Neut # (Auto) Lymph # (Auto) Person # (Auto) Eos # (Auto) Baso # (Auto) Immature Gran # (Auto) Sodium Potassium Chloride Carbon Dioxide Anion Gap BUN Creatinine Est Cr Clr Drug Dosing eGFR BUN/Creatinine Ratio Glucose Calcium Total Bilirubin AST ALT Alkaline Phosphatase Total Protein Albumin Globulin Albumin/Globulin Ratio Treponema pallidum Ab Blood Type Antibody Screen Antibody Identification Antibody ID Comment Screen
[2024-05-26] MEDS ORDERED: bisacodyL 10 MG SUPP PR PRN (17:19)
[2024-05-26] MEDS ORDERED: IBUPROFEN 600 MG TAB PO PRN (17:19)
[2024-05-26] MEDS ORDERED: ACETAMINOPHEN 325 MG TAB PO PRN (23:19)
== END 2024-05-26 16:20 | disposition home or self-care (01) | DRG 788 ==
LOC: OPB 20:14 → 4S1 20:16 → 4E2 05-24 20:16